=== PATIENT | female | born 1970 | race African-American/Black ===

== ENCOUNTER → 2017-01-11 | Outpatient (CLI) | payer BC, OTHER ==
--- NOTE | 2017-01-11 15:04 | RAD ---
Complete abdominal ultrasound 01/11/2017 Indication: Upper abdominal pain. Lower abdominal pain. Multiple urinary tract infections. Comparison study: None Discussion: Ultrasound evaluation of the abdomen was performed. Static images first were in PACS. Visualized portions of the aorta and IVC are unremarkable. The pancreas is poorly visualized secondary to overlying bowel gas. The gallbladder is within normal limits. No evidence of focal bladder wall thickening, stones, or sludge is identified. The portal vein is patent. Common bile duct is nondilated. In the posterior right hepatic lobe there is a mildly hyperechoic mass measuring 3.7 cm. No significant internal blood flow is identified on color Doppler imaging. Liver is otherwise unremarkable. The right kidney measures 10 cm in length and is normal in appearance. Left kidney is poorly visualized due to overlying ribs and other structures. The kidneys are normal in size measuring 10.5 cm in length. No gross abnormalities of the left kidney are identified. The spleen is grossly normal in appearance. The bladder is grossly normal in appearance. Ureteral jets are noted bilaterally. Impression: 1.3.7 cm echogenic mass in the posterior right liver. While most commonly this appearance relates to hepatic hemangioma, other hepatic masses can have a similar appearance. Recommend further characterization with a hepatic protocol MRI. 2. Otherwise unremarkable sonographic appearance of the abdomen and pelvis
--- NOTE | 2017-01-11 15:06 | RAD ---
Thyroid ultrasound 01/11/2017 Indication: Thyromegaly Comparison study: None Discussion: Ultrasound evaluation of the thyroid was performed. Static images were submitted to PACS. Left thyroid measures 4.4 x 1.5 x 1.4 cm. Right thyroid measures 4.0 x 1.5 x 1.6 cm. Thyroid isthmus measures 0.4 cm in thickness. No focal thyroid lesions or masses are identified. Blood flow thyroid gland is grossly unremarkable and color Doppler imaging. No other focal sonographic abnormality is appreciated. Impression: Top normal size of the thyroid. Otherwise unremarkable thyroid ultrasound
== END | disposition home or self-care (01) ==
LOC: US 08:48
PROVIDERS: ATTEND Nurse Practitioner Family
DX: E01.0 Iodine-deficiency related diffuse (endemic) goiter (principal); R10.31 Right lower quadrant pain; R10.11 Right upper quadrant pain; R30.0 Dysuria
CPT/HCPCS: 76536; 76700